=== PATIENT | female | born 2000 | race Caucasian/White ===

== ENCOUNTER 2018-08-29 15:05 | Emergency (ER) | payer SELFPAY ==
[2018-08-29] MEDS ORDERED: NS 0.9% 1000 ML** 1,000 ML IV ONE (16:22)
--- NOTE | 2018-08-29 17:12 | ED ---
Substance Abuse/Use - HPI Summary HPI Summary: Patient is a 17-year-old female presenting to the ED from [facility] with alcohol intoxication. Patient is not alert or oriented to person, place, time. She is responsive to sternal rub only. She is not responsive to verbal stimuli. Patient smells of alcohol and appears to have had recently vomited. She has vomitus to her hair and clothing. Her vital signs are stable on arrival. Level V caveat. - History Of Current Complaint Chief Complaint: EDSubstanceAbuse Stated Complaint: INTOXICATED/POSS DRUGS PER EMS Time Seen by Provider: 08/29/18 15:21 Hx Obtained From: Patient ?: No Ingestion History: Type/Name Of Drug - Alcohol, Amount Ingested - Unknown, Approximate Time Of Ingestion - Just prior to arrival Overdose Characteristics: Oral Timing Of Abuse: Binge Use - On this date Severity Initially: Severe Severity Currently: Moderate Character: Stuporous Aggravating Factor(s): Nothing Alleviating Factor(s): Nothing Associated Signs And Symptoms: Nausea, Vomiting, Intentional Ingestion - Allergies/Home Medications Home Medications: Home Medications NK [No Home Medications Reported] 08/29/18 [History Confirmed 08/29/18] PMH/Surg Hx/FS Hx/Imm Hx Previously Healthy: Yes - Immunization History Hx Pertussis Vaccination: No Immunizations Up to Date: Yes Infectious Disease History: Unable to Obtain/Confirm Infectious Disease History: Denies: Traveled Outside the [place] in Last 30 Days - unknown - Social History Occupation: Unemployed, Student Lives: Dormitory/Roommates Alcohol Use: Daily - binge use on this date Hx Substance Use: No Substance Use Type: Reports: None Hx Tobacco Use: No Smoking Status (MU): Unknown if Ever Smoked Review of Systems Negative: Fever, Chills, Fatigue, Skin Diaphoresis Negative: Palpitations, Chest Pain Negative: Cough Positive: Vomiting, Nausea Positive: Weakness, Slurred Speech. Negative: Headache, Syncope All Other Systems Reviewed And Are Negative: Yes Physical Exam Triage Information Reviewed: Yes Vital Signs On Initial Exam: Initial Vitals Temp Pulse Resp BP Pulse Ox 96 F 97 20 88/60 99 08/29/18 15:17 08/29/18 15:17 08/29/18 15:17 08/29/18 15:17 08/29/18 15:17 Completion Of Physical Exam Limited Due To: Altered Mental Status Appearance: Positive: Ill-Appearing Skin: Positive: Diaphoretic Head/Face: Positive: Normal Head/Face Inspection Eyes: Positive: EOMI, Conjunctiva Clear Neck: Positive: Supple, Nontender, No Lymphadenopathy Respiratory/Lung Sounds: Positive: Clear to Auscultation, Breath Sounds Present Cardiovascular: Positive: Pulses are Symmetrical in both Upper and Lower Extremities. Negative: Leg Edema Left, Leg Edema Right Musculoskeletal: Positive: Strength/ROM Intact Neurological: Positive: Slurred Speech Psychiatric: Positive: Patient Uncooperative for Exam - Patient unable to answer questions appropriately AVPU Assessment: Pain (Reponds To) - Painful stimuli - Danni Coma Scale Best Eye Response: 2 - To Pain Best Motor Response: 4 - Withdraws Best Verbal Response: 2 - Incomprehensible Words Coma Scale Total: 8 Diagnostics - Vital Signs Vital Signs Temp Pulse Resp BP Pulse Ox 08/29/18 15:17 96 F 97 20 88/60 99 - Laboratory Lab Statement: Any lab studies that have been ordered have been reviewed, and results considered in the medical decision making process. Course/Dx - Course Course Of Treatment: During this course of treatment, the patient's evaluated for alcohol intoxication. Unknown if other drugs ingested. Her pupils are EOMI /PERRLA. Vomitus in the hair and clothing. Lungs CTA, RRR. Vital signs are stable. Alcohol level obtained which is 255. Patient is given fluids. After approximately 5 hours, patient is feeling improved. She is endorsing pain to her left ankle. This has some slight swelling and ecchymosis. She is able to flex and extend however without pain. X-ray obtained which shows no acute findings, this was read by SARAH Naidu. We'll call with any positive results. Patient is ambulating well, drinking well. She will be discharged at this time with alcohol intoxication. - Diagnoses Differential Diagnosis/HQI/PQRI: Positive: Alcohol Abuse, Other - Alcohol use, alcohol intoxication Provider Diagnoses: Ankle sprain, Alcohol intoxication Discharge - Sign-Out/Discharge Documenting (check all that apply): Patient Departure Patient Received Moderate/Deep Sedation with Procedure: No - Discharge Plan Condition: Stable Disposition: HOME Patient Education Materials: Ankle Sprain (ED), Alcohol Intoxication (ED) Referrals: No Primary Care Phys,NOPCP [Primary Care Provider] - Additional Instructions: Do not drink alcohol Keep the ankle in a luz wrap for comfort Ibuprofen as needed for pain - Billing Disposition and Condition Condition: STABLE Disposition: Home
[2018-08-29 20:01] VITALS: BP 121/87
== END 2018-08-29 20:00 | disposition home or self-care (01) ==
LOC: ED 15:05
DX: F10.129 Alcohol abuse with intoxication, unspecified (principal); S93.402A Sprain of unspecified ligament of left ankle, initial encounter; X58.XXXA Exposure to other specified factors, initial encounter; Y90.8 Blood alcohol level of 240 mg/100 ml or more
CPT/HCPCS: 36415; 80320; 96360; 96361; 99283; G0480